=== PATIENT | female | born 1990 | race Two or more races ===

== ENCOUNTER 2016-06-02 00:35 | Emergency (ER) | payer OTHER ==
[2016-06-02 00:54] LABS: PH,URINE 6.5 (5.0-8.0); SPECIFIC GRAVITY 1.015 (1.001-1.030); URINE BILIRUBIN NEGATIVE (NEGATIVE); URINE BLOOD 4+ (NEGATIVE); URINE GLUCOSE (UA) NEGATIVE (NEGATIVE); URINE LEUKOCYTE ESTERASE 2+ (NEGATIVE); URINE NITRITE NEGATIVE (NEGATIVE); URINE PROTEIN 2+ (NEGATIVE); URINE UROBILINOGEN NORMAL (0-1 mg/dl)
[2016-06-02 00:57] LABS: URINE APPEARANCE TURBID; URINE COLOR YELLOW
[2016-06-02 00:58] LABS: HCG,QUALITATIVE URINE NEGATIVE
[2016-06-02 01:16] LABS: URINE BACTERIA 1+; URINE RBC >100 /hpf; URINE WBC >100 /hpf
[2016-06-02] MEDS ORDERED: CIPROFLOXACIN 500 MG TABLET ONE (03:32)
[2016-06-02] MEDS ORDERED: PHENAZOPYRIDINE HCL 200 MG TABLET ONE (03:32)
== END 2016-06-02 04:19 | disposition home or self-care (01) ==
LOC: ED 00:35
DX: N39.0 Urinary tract infection, site not specified (principal)